=== PATIENT | male | born 1965 | race Hispanic/Latino ===

== ENCOUNTER → 2019-04-08 | Outpatient (CLI) | payer BC ==
[~2019-04-08] MED LIST: IOHEXOL 350 MG/ML 100ML INFUS..BTL IV ONE
== END | disposition home or self-care (01) ==
LOC: RAH 09:27
PROVIDERS: ATTEND Nurse Practitioner Family
DX: K42.9 Umbilical hernia without obstruction or gangrene (principal); J98.11 Atelectasis; K46.9 Unspecified abdominal hernia without obstruction or gangrene; M47.815 Spondylosis without myelopathy or radiculopathy, thoracolumbar region
CPT/HCPCS: 74170; Q9967